=== PATIENT | female | born 2000 | race Two or more races ===

== ENCOUNTER → 2024-11-27 | Emergency (ER) | payer MEDICAID, OTHER ==
[~2024-11-27] VITALS: Ht 154.9 cm; Wt 70.3 kg
[2024-11-27 21:04] VITALS: BP 123/55; PULSE 110; RESP 19; TEMP 98.3; O2SAT 94
== END | disposition left against medical advice (07) ==
LOC: ER 21:00
DX: R10.9 Unspecified abdominal pain (principal); Z53.21 Procedure and treatment not carried out due to patient leaving prior to being seen by health care provider